=== PATIENT | male | born 1980 | race American Indian/Alaskan Native ===

== ENCOUNTER 2022-05-14 11:00 | Emergency (ER) | payer SELFPAY ==
[2022-05-14 12:02] VITALS: BP 169/103
--- NOTE | 2022-05-14 12:56 | Emergency Department Report ---
ED Rash HPI - HPI Chief Complaint: Skin Rash Stated Complaint: SKIN RASH Time Seen by Provider: 05/14/22 12:00 Duration: 2 Days Location: Head, Neck, Chest, Upper Extremities, Lower Extremities Suspected Cause: Unknown Rash Symptoms: Yes Itching, No Facial Swelling, No Tongue/Oral Swelling, No Breathing Difficulties, No Choking Sensation, No Wheezing/Dyspnea, No Peeling, No Blistering, No Fever, No Lightheaded, No Malaise, No Myalgias Severity: mild Other History: 41-year-old male presenting with rash since Saturday. 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 He has been applying some topical "Preparation H cream without improvement". mptoms are without fever, fatigue body aches, headache dizziness nausea vomiting no angioedema, no shortness of breath, no chest tightness or breathing difficulty ED Review of Systems ROS: Stated complaint: SKIN RASH Other details as noted in HPI Constitutional: no symptoms reported ENT: denies: ear pain Respiratory: no symptoms reported Cardiovascular: denies: chest pain, palpitations, dyspnea on exertion Endocrine: denies: see HPI, excessive sweating, intolerance to cold, intolerance to heat Gastrointestinal: denies: abdominal pain, nausea, vomiting Genitourinary: denies: urgency Skin: rash, lesions, pruritus Neurological: denies: headache Psychiatric: denies: anxiety Hematological/Lymphatic: denies: easy bleeding ED Past Medical Hx - Past Medical History Previous Medical History?: Yes - Medications Home Medications: Home Medications Medication Instructions Recorded Confirmed Last Taken Type diphenhydrAMINE [Benadryl CAP] 25 mg PO Q6HR PRN #20 capsule 05/14/22 Unknown Rx predniSONE [Deltasone] 20 mg PO QDAY 5 Days #10 tab 05/14/22 Unknown Rx Rash Exam - Exam General: Vital signs noted. No distress. Alert and acting appropriately. HEENT: No Periorbital Edema, No Conjuctival Injection, No Chemosis, No Perioral Edema, No Tongue Edema, No Uvular Edema, No Compromised Airway, No Drooling Lungs: Yes Good Air Exchange, No Wheezes, No Ronchi, No Stridor, No Cough, No Labored Respirations, No Retractions, No Use of Accessory Muscles, No Other Abnormal Lung Sounds Heart: Yes Regular, No Murmur Skin: Yes Maculopapular Rash, No Urticarial Rash, No Morbilliform rash, No Bulla(e), No Excoriations, No Weeping, No Tenderness, No Erythema, No Edema, No Encrustations Other: Positive: Abdomen Normal, Neurologic Normal, Musculoskeletal Normal ED Course Vital Signs 05/14/22 11:58 Temperature 98.2 F Pulse Rate 80 Respiratory 18 Rate Blood Pressure 169/103 [Right] O2 Sat by Pulse 99 Oximetry ED Medical Decision Making - Medical Decision Making Vital signs are stable, patient is nontoxic-appearing, differential diagnosis includes allergic reaction, contact dermatitis, monkey [place], Symptoms are without fever, fatigue body aches, headache dizziness nausea vomiting no angioedema, no shortness of breath, no chest tightness or breathing difficulty discharge home with supportive therapy including steroids, Benadryl,. And outpatient follow-up. Patient remained stable nontoxic-appearing, afebrile, ambulating steadily without assistance. Gone over ED findings with patient as well as plan for follow-up. Also discussed return precautions with patient, all questions and concerns addressed. Patient is stable to be discharged follow-up outpatient. Audio voice dictation device used, hence the chart might contain some dictation errors, mispronunciations, wrong spelling and wrong verbiage. Critical care attestation.: If time is entered above; I have spent that time in minutes in the direct care of this critically ill patient, excluding procedure time. ED Disposition Clinical Impression: Rash and other nonspecific skin eruption, Dermatitis, contact Disposition: 01 HOME / SELF CARE / HOMELESS Is pt being admited?: No Does the pt Need Aspirin: No Condition: Stable Instructions: Contact Dermatitis Forms: Work/School Release Form(ED)
== END 2022-05-14 14:17 | disposition home or self-care (01) ==
LOC: ED 11:00
DX: L25.9 Unspecified contact dermatitis, unspecified cause (principal); Z98.890 Other specified postprocedural states; Z79.899 Other long term (current) drug therapy
CPT/HCPCS: 99282